=== PATIENT | female | born 1990 | race Caucasian/White ===

== ENCOUNTER 2016-12-15 08:17 | Emergency (ER) | payer SELFPAY ==
[~2016-12-15] VITALS: Ht 170.2 cm; Wt 56.7 kg
--- NOTE | 2016-12-15 08:20 | NUR ---
PATIENT BIB [place], FOUND STROLLING INTO [employer], ALTERED AND CONFUSED. PATIENT STATES SHE HAS TAKEN METH AND HEROIN. BREATHING EVEN AND UNLABORED, PUPILS DILATED, TACHYCARDIC. NO DISTRESS. SAFETY AND COMFORT MEASURES IN PLACE. AWAITING MD ORDERS.
[2016-12-15] MEDS ORDERED: LORAZEPAM INJ 2 MG/ML VIAL ONE (08:28)
[2016-12-15] MEDS ORDERED: IV NS 0.9% 1,000 ML BAG IV ONE (08:30)
[2016-12-15] MEDS ORDERED: LORAZEPAM INJ 2 MG/ML VIAL IM ONE (08:30)
[2016-12-15 08:51] LABS: BASOPHILS % (AUTO) 0.3 % (0.0-2.0); HEMATOCRIT 38 % (33-45); LYMPHOCYTES % (AUTO) 21.2 % (20.0-44.0); MEAN CORPUSCULAR HEMOGLOBIN 30 PG (26.0-33.0); MEAN CORPUSCULAR HGB CONC 34 g/dl (31.0-36.0); MEAN CORPUSCULAR VOLUME 87 fL (82-100); MONOCYTES # (AUTO) 0.5 /CMM (0.1-1.30); MONOCYTES % (AUTO) 5.6 % (2.0-12.0); NEUTROPHILS # (AUTO) 6.9 /CMM (1.8-8.9); NEUTROPHILS % (AUTO) 72.9 % (43.0-81.0); PLATELET COUNT (AUTO) 220 /CMM (150-450); RDW COEFFICIENT OF VARIATION 14.1 (11.5-15.0); RED BLOOD CELL COUNT(AUTO) 4.35 MIL/uL (4.0-5.2); WHITE BLOOD COUNT (AUTO) 9.4 K/uL (4.3-11.0)
--- NOTE | 2016-12-15 08:55 | NUR ---
URINE OBTAINED VIA STRAIGHT CATH AND SENT TO LAB PER DR. ANDERSON'S ORDERS.
[2016-12-15 09:02] LABS: CALCIUM, SERUM 9.1 mg/dL (8.5-10.1); CARBON DIOXIDE 24 mmol/L (21-32); CHLORIDE 107 mmol/L (98-107); CREATININE 1.1 mg/dL (0.6-1.3); GLUCOSE 127 mg/dL (74-106); POTASSIUM 3.1 mmol/L (3.5-5.1); SODIUM SERUM 143 mmol/L (136-145); UREA NITROGEN, BLOOD 20 mg/dL (7-18)
[2016-12-15 09:04] LABS: ALCOHOL, BLOOD < 3 mg/dL (0-0)
[2016-12-15 11:30] VITALS: BP 125/69
--- NOTE | 2016-12-15 12:00 | NUR ---
IV removed. Catheter intact and site benign. Pressure and 4x4 applied to site. No bleeding noted.
--- NOTE | 2016-12-15 15:00 | NUR ---
BALDOMERO VARGAS HERE FOR PSYCH EVAL PATIENT IS NOWHERE TO BE FOUND. ACCORDING TO ALYCE ROBERT, SHE WENT OUT WITH ROOMMATE AND ADULT FRIEND TO HAVE A SMOKE 3O MINUTES EARLIER.PATIENT HAS NOT RETURNED UNTIL THIS TIME.
== END 2016-12-15 15:27 | disposition left against medical advice (07) ==
LOC: ER 08:19
DX: T44.901A Poisoning by unspecified drugs primarily affecting the autonomic nervous system, accidental (unintentional), initial encounter (principal); Y92.89 Other specified places as the place of occurrence of the external cause
CPT/HCPCS: 36415; 80048; 80305; 84703; 85025; 93005; 96360; 96372; 99285; A4606; G0480; J2060; J7030 ×2; Z7610